=== PATIENT | male | born 1965 | race African-American/Black ===

== ENCOUNTER 2016-11-27 11:22 | Emergency (ER) | payer OTHER ==
[2016-11-27] MEDS ORDERED: HYDROcodone/APAP 5-325MG 1 EACH TAB PO STA (11:40)
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
--- NOTE | 2016-11-27 12:37 | XR ---
EXAMINATION TYPE: XR Hip RT and AP Pelvis DATE OF EXAM: 11/27/2016 12:14 PM COMPARISON: NONE HISTORY: Hip pain TECHNIQUE: A single AP view of the pelvis is obtained. Two views of the right hip are obtained. FINDINGS: The pelvic ring is intact. Proximal femurs and hip joints are intact. Sacroiliac joints ar e normal. IMPRESSION: Normal pelvis and right hip exam.
[2016-11-27 13:03] VITALS: BP 133/76; PULSE 81; RESP 18; TEMP 97.5
== END 2016-11-27 13:00 | disposition home or self-care (01) ==
LOC: EC 11:22
DX: S39.011A Strain of muscle, fascia and tendon of abdomen, initial encounter (principal); Z88.0 Allergy status to penicillin; F17.200 Nicotine dependence, unspecified, uncomplicated; X50.9XXA Other and unspecified overexertion or strenuous movements or postures, initial encounter
CPT/HCPCS: 73502; 99283

== ENCOUNTER 2017-04-27 09:03 | Emergency (ER) | payer OTHER ==
[2017-04-27 09:13] VITALS: BP 164/97; PULSE 69; RESP 15; TEMP 96.9
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
--- NOTE | 2017-04-27 10:23 | XR ---
EXAMINATION TYPE: XR shoulder complete RT DATE OF EXAM: 04/27/2017 CLINICAL HISTORY: pain TECHNIQUE: Three views of the right shoulder are obtained. COMPARISON: None FINDINGS: There is no acute fracture/dislocation evident. The acromioclavicular and glenohumeral luis felipe int spaces appear within normal limits. The visualized ribs are intact and unremarkable. IMPRESSION: 1. There is no acute fracture or dislocation. ICD 10 NO FRACTURE, INITIAL EVALUATION
--- NOTE | 2017-04-27 10:24 | XR ---
EXAMINATION TYPE: XR ribs LT w pa chest xray DATE OF EXAM: 04/27/2017 CLINICAL HISTORY: Pain Four views of the ribs fail demonstrate evidence for displaced rib fracture or secondary sign of rib fracture. Visualized lungs are clear. No evidence for pneumothorax. Scoliosis of the thoracic spine . IMPRESSION: No displaced rib fractures seen. ICD 10 NO FRACTURE, INITIAL EVALUATION
== END 2017-04-27 11:10 | disposition home or self-care (01) ==
LOC: EC 09:03
DX: S40.011A Contusion of right shoulder, initial encounter (principal); S20.212A Contusion of left front wall of thorax, initial encounter; F17.200 Nicotine dependence, unspecified, uncomplicated; Z88.0 Allergy status to penicillin; Y04.0XXA Assault by unarmed brawl or fight, initial encounter
CPT/HCPCS: 99283

== ENCOUNTER 2018-10-19 03:06 | Emergency (ER) | payer OTHER ==
[2018-10-19 03:20] VITALS: BP 163/101; PULSE 94; RESP 16; TEMP 98
[2018-10-19] MEDS ORDERED: predniSONE 50 MG TAB PO STA (03:36)
--- NOTE | 2018-10-19 03:41 | ED ---
Skin/Abscess/FB HPI - General Chief complaint: Skin/Abscess/Foreign Body Stated complaint: rash Time Seen by Provider: 10/19/18 03:21 Source: patient, RN notes reviewed, old records reviewed Mode of arrival: ambulatory Limitations: no limitations - History of Present Illness Initial comments: 53-year-old male presents emergency department today with chief complaint of rash 4 weeks. Patient states that he has had a pruritic rash over his arms buttocks groin and trunk for the past month. He states that he's had a rash similar to this many years ago when he cyanosis scabies. Patient reports his been using [id number] creams with no relief. He denies any known history of sick contacts. He denies any other complaints. He denies dysuria or hematuria or any concerns for STD that he is aware of this time. - Related Data Previous Rx's Medication Instructions Recorded Ibuprofen [Motrin] 600 mg PO Q6HR PRN #20 tab 04/27/17 Permethrin 5% Cream [Elimite] 1 applic TOPICAL ONCE #60 cream..g. 10/19/18 predniSONE 20 mg PO BID #10 tab 10/19/18 Allergies Allergy/AdvReac Type Severity Reaction Status Date / Time Penicillins Allergy Unknown Verified 10/19/18 03:20 Review of Systems ROS Statement: Those systems with pertinent positive or pertinent negative responses have been documented in the HPI. ROS Other: All systems not noted in ROS Statement are negative. Past Medical History Past Medical History: Hypertension History of Any Multi-Drug Resistant Organisms: None Reported Past Surgical History: Hernia Repair Past Psychological History: No Psychological Hx Reported Smoking Status: Current every day smoker Past Alcohol Use History: Occasional Past Drug Use History: None Reported General Exam - General Exam Comments Initial Comments: Is a 53-year-old -[place] male. No distress Limitations: no limitations General appearance: alert, in no apparent distress Head exam: Present: atraumatic, normocephalic, normal inspection Eye exam: Present: normal appearance, PERRL, EOMI. Absent: scleral icterus, conjunctival injection, periorbital swelling ENT exam: Present: normal exam, mucous membranes moist Neck exam: Present: normal inspection. Absent: tenderness, meningismus, lymphadenopathy Respiratory exam: Present: normal lung sounds bilaterally. Absent: respiratory distress, wheezes, rales, rhonchi, stridor Cardiovascular Exam: Present: regular rate, normal rhythm, normal heart sounds. Absent: systolic murmur, diastolic murmur, rubs, gallop, clicks GI/Abdominal exam: Present: soft, normal bowel sounds. Absent: distended, tenderness, guarding, rebound, rigid Extremities exam: Present: normal inspection, full ROM, normal capillary refill. Absent: tenderness, pedal edema, joint swelling, calf tenderness Back exam: Present: normal inspection Neurological exam: Present: alert, oriented X3, CN II-XII intact Psychiatric exam: Present: normal affect, normal mood Skin exam: Present: warm, dry, intact, normal color, rash (papular rash with exocoriations over arms, legs and trunk) Course Vital Signs 10/19/18 03:18 Temperature 98 F Pulse Rate 94 Respiratory 16 Rate Blood Pressure 163/101 O2 Sat by Pulse 99 Oximetry Medical Decision Making - Medical Decision Making 53-year-old male presents emergency Department today with complaints of a rash over her arms chest and abdomen. Patient's rash isn't present for 4 weeks. Patient has a raised papular rash with excoriations noted over the arms. There is no rash noted within the webspace that is so within the axilla and groin. Patient's rash appears to be similar to scabies not definitive. We will treat the Patient with permethrin cream as well as oral steroids to help with itching. Discussed strict return parameters and close follow-up with PCP. All questions answered. Disposition Clinical Impression: Dermatitis Disposition: HOME SELF-CARE Condition: Good Instructions (If sedation given, give patient instructions): Dermatitis (ED) Additional Instructions: Patient advised to follow-up with editorial writer. Patient should take the steroids as prescribed. Also recommended using the permethrin cream to treat for the possibility of scabies. Patient should return to the emergency department if any alarming signs or symptoms occur. Avoid scratching at the areas to ensure no secondary bacterial infections occur. Prescriptions: Permethrin 5% Cream [Elimite] 1 applic TOPICAL ONCE #60 cream..g. predniSONE 20 mg PO BID #10 tab Is patient prescribed a controlled substance at d/c from ED?: No Referrals: None,Stated [Primary Care Provider] - 1-2 days Jamar Quevedo MD [STAFF PHYSICIAN] - 1-2 days Time of Disposition: 03:38
== END 2018-10-19 03:54 | disposition home or self-care (01) ==
LOC: EC 03:06
DX: L30.9 Dermatitis, unspecified (principal); F17.200 Nicotine dependence, unspecified, uncomplicated; Z88.0 Allergy status to penicillin
CPT/HCPCS: 99283; J7512

== ENCOUNTER 2018-10-31 14:34 | Emergency (ER) | payer OTHER ==
--- NOTE | 2018-10-31 15:22 | ED ---
General Adult HPI - General Chief complaint: Skin/Abscess/Foreign Body Stated complaint: Rash on arm Time Seen by Provider: 10/31/18 14:50 Source: patient, RN notes reviewed Mode of arrival: ambulatory Limitations: no limitations - History of Present Illness Initial comments: 53-year-old male presents to the emergency department for a chief complaint of rash 6 weeks. Patient states this rash has been consistent and has not worsened significantly. Patient states it is very pruritic. Patient states this started on his arms and has since spread to his upper legs and torso. Patient was immunized as a child. Patient denies any systemic symptoms such as nausea vomiting, fevers, abdominal pain. Patient was seen here in the emergency department and given steroids and permethrin. Patient states the rash did not go away but the itching did resolve while he was taking the steroids. Patient was referred to dermatology but has not yet followed up. 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 He states he did this for before he came to the emergency department so he has not yet heard back. Patient has no other complaints at this time including shortness of breath, chest pain, abdominal pain, nausea or vomiting, headache, or visual changes. - Related Data Previous Rx's Medication Instructions Recorded Ibuprofen [Motrin] 600 mg PO Q6HR PRN #20 tab 04/27/17 Permethrin 5% Cream [Elimite] 1 applic TOPICAL ONCE #60 cream..g. 10/19/18 predniSONE 20 mg PO BID #10 tab 10/19/18 predniSONE 50 mg PO DAILY #5 tablet 10/31/18 Allergies Allergy/AdvReac Type Severity Reaction Status Date / Time Penicillins Allergy Unknown Verified 10/31/18 14:42 Review of Systems ROS Statement: Those systems with pertinent positive or pertinent negative responses have been documented in the HPI. ROS Other: All systems not noted in ROS Statement are negative. Past Medical History Past Medical History: Hypertension History of Any Multi-Drug Resistant Organisms: None Reported Past Surgical History: Hernia Repair Past Psychological History: No Psychological Hx Reported Smoking Status: Current every day smoker Past Alcohol Use History: Occasional Past Drug Use History: None Reported General Exam Limitations: no limitations General appearance: alert, in no apparent distress Head exam: Present: atraumatic, normocephalic, normal inspection Eye exam: Present: normal appearance, PERRL, EOMI. Absent: scleral icterus, conjunctival injection, periorbital swelling ENT exam: Present: normal exam, mucous membranes moist Neck exam: Present: normal inspection, full ROM. Absent: tenderness, meningismus, lymphadenopathy Respiratory exam: Present: normal lung sounds bilaterally. Absent: respiratory distress, wheezes, rales, rhonchi, stridor Cardiovascular Exam: Present: regular rate, normal rhythm, normal heart sounds. Absent: systolic murmur, diastolic murmur, rubs, gallop, clicks Neurological exam: Present: alert, oriented X3, CN II-XII intact Psychiatric exam: Present: normal affect, normal mood Skin exam: Present: rash (Patient has a papular raised rash noted to the upper extremities as well as upper legs abdomen. No significant lesions of the back. Patient does have pattern of pityriasis rosea noted to the sides of his back.) Course Vital Signs 10/31/18 14:39 Temperature 97.7 F Pulse Rate 109 H Respiratory 16 Rate Blood Pressure 163/92 O2 Sat by Pulse 99 Oximetry Medical Decision Making - Medical Decision Making 53-year-old male presents for nonspecific rash 6 weeks. Patient did take steroids for this and it did help with the itching. He has not followed up. On exam rash is raised on the upper extremities as well as abdomen and upper legs. Negative Nikolsky sign. Permethrin did not eliminate the rash when it was taken. At this time discussed with patient that I will give him more steroids but he needs to follow up with dermatology. He does agree to do this. He will return here if he has any worsening symptoms. Disposition Clinical Impression: Rash Disposition: HOME SELF-CARE Condition: Good Instructions (If sedation given, give patient instructions): Acute Rash (ED) Additional Instructions: Please take steroid as directed. Please follow up with dermatology and primary care in 1-2 days. You may have to follow up with primary first for referral to dermatology. Return here to the emergency department if you have any worsening symptoms. Prescriptions: predniSONE 50 mg PO DAILY #5 tablet Is patient prescribed a controlled substance at d/c from ED?: No Referrals: Nieves Santos MD [REFERRING] - 1-2 days Camelia Quevedo MD [STAFF PHYSICIAN] - 1-2 days Nitish Ventura MD [STAFF PHYSICIAN] - 1-2 days Time of Disposition: 15:44
[2018-10-31 16:07] VITALS: BP 157/100; PULSE 89; RESP 18; TEMP 97.5
== END 2018-10-31 16:07 | disposition home or self-care (01) ==
LOC: EC 14:34
DX: R21 Rash and other nonspecific skin eruption (principal); L42 Pityriasis rosea; F17.200 Nicotine dependence, unspecified, uncomplicated; Z88.0 Allergy status to penicillin
CPT/HCPCS: 99282

== ENCOUNTER → 2018-11-14 | Outpatient (CLI) | payer OTHER ==
[2018-11-15 01:10] LABS: Hepatitis B Surface AB- Quant 3.5 mIU/mL; Hepatitis C IgG Antibody Non-Reactive (Non-Reactive)
== END | disposition home or self-care (01) ==
LOC: LABWHC1 17:19
PROVIDERS: ATTEND Physician Assistant Medical
DX: D48.5 Neoplasm of uncertain behavior of skin (principal)
CPT/HCPCS: 36415; 82465; 82565; 84450; 84460; 84478; 84520; 86706; 86803; 87340

== ENCOUNTER 2019-07-16 08:45 | Emergency (ER) | payer OTHER ==
[2019-07-16 08:50] VITALS: BP 155/98; PULSE 71; RESP 18; TEMP 97.5
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
--- NOTE | 2019-07-16 09:27 | XR ---
EXAMINATION TYPE: XR shoulder complete RT DATE OF EXAM: 07/16/2019 COMPARISON: NONE HISTORY: Pain TECHNIQUE: Three views are submitted. FINDINGS: The osseous structures are intact. There is no acute fracture or dislocation. Mild AC joint arthropa thy. IMPRESSION: 1. Mild AC joint arthropathy
== END 2019-07-16 09:55 | disposition home or self-care (01) ==
LOC: EC 08:45
DX: S46.911A Strain of unspecified muscle, fascia and tendon at shoulder and upper arm level, right arm, initial encounter (principal); F17.200 Nicotine dependence, unspecified, uncomplicated; Z88.0 Allergy status to penicillin; V87.8XXA Person injured in other specified noncollision transport accidents involving motor vehicle (traffic), initial encounter
CPT/HCPCS: 99283

== ENCOUNTER 2019-09-03 20:23 | Emergency (ER) | payer OTHER ==
[2019-09-03 20:31] VITALS: BP 130/91; PULSE 91; RESP 18; TEMP 97.3
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
--- NOTE | 2019-09-03 20:54 | XR ---
EXAMINATION TYPE: XR shoulder complete LT DATE OF EXAM: 09/03/2019 COMPARISON: NONE HISTORY: Pain TECHNIQUE: 3 views FINDINGS: I see no fracture nor dislocation. Glenohumeral joint is intact. There are no pathologic ca lcifications. IMPRESSION: Negative left shoulder exam.
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
== END 2019-09-03 21:07 | disposition home or self-care (01) ==
LOC: EC 20:23
DX: S09.90XA Unspecified injury of head, initial encounter (principal); M25.512 Pain in left shoulder; M41.9 Scoliosis, unspecified; F17.200 Nicotine dependence, unspecified, uncomplicated; Z88.0 Allergy status to penicillin; Y04.0XXA Assault by unarmed brawl or fight, initial encounter; Y93.89 Activity, other specified
CPT/HCPCS: 70450; 99284

== ENCOUNTER 2022-04-30 20:57 | Inpatient (IN) | payer OTHER ==
[2022-04-30] MEDS ORDERED: DIPH,PERTUS(ACELL)TETVAC-LF 0.5 ML VIAL IM ONE (21:13)
[2022-04-30] MEDS ORDERED: LORazepam 2 MG/ML INJ IV STA ×2 (21:30→21:50)
[2022-04-30] MEDS ORDERED: HALOPERIDOL LACTATE 5 MG/ML 1 ML VIAL IVP STA ×2 (21:30→22:07)
[2022-04-30] MEDS ORDERED: SODIUM CHLORIDE 0.9% 1,000 ML IV STA (21:36)
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
[2022-04-30 22:09] LABS: Basophils % (A) 0 %; Eosinophils # (A) 0.1 k/uL (0-0.7); Eosinophils % (A) 1 %; HCT 40.4 % (39.0-53.0); HGB 13.5 gm/dL (13.0-17.5); Lymphocytes # (A) 2.8 k/uL (1.0-4.8); Lymphocytes % (A) 33 %; MCH 31.8 pg (25.0-35.0); MCHC 33.4 g/dL (31.0-37.0); MCV 95.1 fL (80.0-100.0); Mean Platelet Volume 8.7; Monocytes # (A) 0.5 k/uL (0-1.0); Monocytes % (A) 6 %; Neutrophils # (A) 4.9 k/uL (1.3-7.7); Neutrophils % (A) 57 %; Platelet Count 178 k/uL (150-450); RBC 4.25 m/uL (4.30-5.90); RDW 13.6 % (11.5-15.5); WBC 8.6 k/uL (3.8-10.6)
[2022-04-30 22:13] LABS: INR 0.9 (<1.2); Prothrombin Time 9.7 sec (9.0-12.0)
[2022-04-30 22:27] LABS: ALT 28 U/L (4-49); AST 59 U/L (17-59); African American GFR (CKD) >90 (>60 ml/min/1.73 sqM); Albumin 4.1 g/dL (3.5-5.0); Alkaline Phosphatase 64 U/L (38-126); Anion Gap 13 mmol/L; Blood Urea Nitrogen 11 mg/dL (9-20); Calcium 9.2 mg/dL (8.4-10.2); Carbon Dioxide 28 mmol/L (22-30); Chloride 98 mmol/L (98-107); Glucose 100 mg/dL (74-99); Non-African American GFR(CKD) >90 (>60 ml/min/1.73 sqM); Potassium 2.8 mmol/L (3.5-5.1); Sodium 139 mmol/L (137-145); Total Bilirubin 0.6 mg/dL (0.2-1.3); Total Protein 6.9 g/dL (6.3-8.2)
[2022-04-30 22:33] LABS: Alcohol 88 mg/dL
[2022-04-30] MEDS ORDERED: POTASSIUM CHLORIDE ER 20 MEQ TAB.ER PO STA (22:51)
--- NOTE | 2022-04-30 22:57 | CT ---
EXAMINATION TYPE: CT brain wo con DATE OF EXAM: 04/30/2022 COMPARISON: 09/03/2019 HISTORY: ams CT DLP: 1231.4 mGycm Automated exposure control for dose reduction was used. Images of the brain obtained without contrast. Ventricles have normal size. There is no mass effect or midline shift. No sign of intracranial hemorr celia. The calvarium is intact. There is left occipital scalp hematoma measuring up to 1 cm in thickne ss. No fracture seen. IMPRESSION: No acute intracranial abnormality. Left side occipital scalp hematoma.
[2022-04-30] MEDS ORDERED: NALOXONE 0.4 MG/ML 1 ML VIAL IV PRN (23:14)
[2022-04-30] MEDS ORDERED: LORazepam 2 MG/ML INJ IV PRN ×2 (23:33)
[2022-04-30] MEDS ORDERED: THIAMINE 100 MG/ML 2 ML VIAL IM STA (23:33)
[2022-04-30] MEDS ORDERED: POTASSIUM CHLORIDE 20 MEQ in WATER FOR INJECTION 1 100ML.BAG IVPB STA (23:34)
--- NOTE | 2022-04-30 23:37 | XR ---
EXAMINATION TYPE: XR pelvis AP view DATE OF EXAM: 04/30/2022 COMPARISON: 11/27/2016 HISTORY: Pain TECHNIQUE: Single view FINDINGS: The pelvic ring is intact. There are bony densities lateral to the right acetabulum consist ent with large acetabular chip fracture. No dislocation. The proximal femurs are intact. Sacroiliac j oints are intact. IMPRESSION: Large lateral right acetabular chip fracture. No dislocation.
--- NOTE | 2022-04-30 23:38 | XR ---
EXAMINATION TYPE: XR chest 1V portable DATE OF EXAM: 04/30/2022 COMPARISON: 04/27/2017 HISTORY: Pain TECHNIQUE: Single view FINDINGS: Heart is normal. Lungs are clear of consolidation. There are no hilar masses. There is thor acic dextroscoliosis. There are chest leads. No pneumothorax. IMPRESSION: No active cardiopulmonary disease. Normal heart. No change.
[2022-05-01] MEDS ORDERED: MORPHINE SULFATE 4 MG/ML SYRINGE IVP PRN (00:35)
[2022-05-01 03:32] LABS: Amphetamine Screen,Urine Not Detected (NotDetected); Barbiturate Screen,Urine Not Detected (NotDetected); Benzodiazepines Screen,Urine Detected (NotDetected); Cocaine Screen,Urine Not Detected (NotDetected); Methadone Screen, Urine Not Detected (NotDetected); Opiate Screen,Urine Not Detected (NotDetected); Oxycodone Screen, Urine Not Detected (NotDetected); Phencyclidine Screen,Urine Not Detected (NotDetected); Tricyclic Antidepressant,Urine Not Detected (NotDetected); Urn Cannabinoid Scrn Not Detected (NotDetected)
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
[2022-05-01] MEDS: THIAMINE 100 MG TAB PO SCH ×3 (06:50→15:43)
[2022-05-01] MEDS: SODIUM CHLORIDE 0.9% 1,000 ML IV SCH ×3 (07:42→21:14)
[2022-05-01] MEDS ORDERED: FLUMAZENIL 0.1 MG/ML 5 ML VIAL IVP PRN (08:24)
[2022-05-01] MEDS ORDERED: FLUMAZENIL 0.1 MG/ML 5 ML VIAL IVP STA (08:28)
[2022-05-01 08:43] LABS: Basophils % (A) 0 %; Eosinophils % (A) 0 %; HCT 39.3 % (39.0-53.0); HGB 13.1 gm/dL (13.0-17.5); Lymphocytes # (A) 1.5 k/uL (1.0-4.8); Lymphocytes % (A) 17 %; MCHC 33.3 g/dL (31.0-37.0); Mean Platelet Volume 8.6; Monocytes # (A) 0.6 k/uL (0-1.0); Monocytes % (A) 7 %; Neutrophils # (A) 6.7 k/uL (1.3-7.7); Neutrophils % (A) 75 %; Platelet Count 176 k/uL (150-450); RDW 13.4 % (11.5-15.5); WBC 8.9 k/uL (3.8-10.6)
[2022-05-01 09:29] LABS: African American GFR (CKD) >90 (>60 ml/min/1.73 sqM); Anion Gap 9 mmol/L; Blood Urea Nitrogen 8 mg/dL (9-20); Calcium 8.3 mg/dL (8.4-10.2); Carbon Dioxide 30 mmol/L (22-30); Chloride 100 mmol/L (98-107); Glucose 71 mg/dL (74-99); Non-African American GFR(CKD) >90 (>60 ml/min/1.73 sqM); Sodium 139 mmol/L (137-145)
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
[2022-05-01 15:57] LABS: African American GFR (CKD) >90 (>60 ml/min/1.73 sqM); Anion Gap 11 mmol/L; Blood Urea Nitrogen 8 mg/dL (9-20); Calcium 8.4 mg/dL (8.4-10.2); Carbon Dioxide 23 mmol/L (22-30); Chloride 103 mmol/L (98-107); Glucose 63 mg/dL (74-99); Non-African American GFR(CKD) >90 (>60 ml/min/1.73 sqM); Potassium 3.5 mmol/L (3.5-5.1); Sodium 137 mmol/L (137-145)
[2022-05-01] MEDS: HEPARIN SODIUM,PORCINE/PF 5,000 UNIT/0.5 ML SYRINGE SQ SCH ×2 (16:15→22:05)
--- NOTE | 2022-05-01 16:59 | P.PN ---
Progress Note - Text Progress Note Date: 05/01/[address] reviewed with Dr. Baxter. No new fracture seen. No pain on exam. The patient may weightbear as tolerated. We will sign off at this time.
[2022-05-01] MEDS: LORazepam 2 MG/ML INJ IV PRN (19:49)
[2022-05-01] MEDS: FAMOTIDINE 20 MG/2 ML VIAL IV SCH (21:14)
[2022-05-01] MEDS ORDERED: NICOTINE 14MG/24HR PATCH TRANSDERM STA (21:30)
[2022-05-02] MEDS: LORazepam 2 MG/ML INJ IV PRN ×4 (00:52→20:51)
[2022-05-02] MEDS: THIAMINE 100 MG TAB PO SCH ×2 (06:38→15:15)
[2022-05-02] MEDS: SODIUM CHLORIDE 0.9% 1,000 ML IV SCH ×2 (06:38→10:50)
[2022-05-02] MEDS: FAMOTIDINE 20 MG/2 ML VIAL IV SCH ×2 (08:34→20:52)
[2022-05-02] MEDS: HEPARIN SODIUM,PORCINE/PF 5,000 UNIT/0.5 ML SYRINGE SQ SCH ×3 (08:34→20:52)
--- NOTE | 2022-05-02 10:24 | P.PN ---
Subjective Progress Note Date: 05/02/22 Patient is still altered, restless in bed. Gen: awake, not oriented to person, time, is oriented to place HEENT: normocephalic, atraumatic, good hearing acuity, moist mucous membranes Resp: good air exchange, breathing comfortably with no accessory muscle use CVS: good distal perfusion x 4, GI: soft, NTTP, ND : no SPT, no CVAT, solorzano catheter not present MSK: no pitting edema, no clubbing Neuro: non-focal, moving all extremities Psych: Minimally cooperative, restless, depressed affect Assessment/plan: Altered mental status, suspected postconcussive syndrome versus alcohol withdrawal -Neurochecks -Fall precautions -Neurology consult -CIWA protocol -Thiamine, IV fluids Hip fracture -Orthopedic surgery following Hypokalemia -Replace and monitor We appreciate this opportunity to be involved in this patient's care. We will follow the patient with you. For any further questions, please not hesitate to contact the sound inpatient team. Objective - Vital Signs Vital signs: Vital Signs Temp 98.4 F 05/02/22 07:57 Pulse 91 05/02/22 07:57 Resp 18 05/02/22 07:57 BP 154/91 05/02/22 07:57 Pulse Ox 95 05/02/22 08:01 FiO2 Intake & Output 05/01/22 05/02/22 05/02/22 18:59 06:59 18:59 Weight 56 kg Other: Voiding Method Diaper Diaper Incontinent # Voids 1 1 - Labs CBC & Chem 7: 05/01/22 07:40 05/01/22 14:57 Labs: Abnormal Lab Results - Last 24 Hours (Table) 05/01/22 Range/Units 14:57 BUN 8 L (9-20) mg/dL Creatinine 0.60 L (0.66-1.25) mg/dL Glucose 63 L (74-99) mg/dL
[2022-05-02] MEDS ORDERED: ONDANSETRON 4 MG/2 ML VIAL IVP PRN (10:53)
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
[2022-05-03] MEDS: SODIUM CHLORIDE 0.9% 1,000 ML IV SCH (02:48)
[2022-05-03] MEDS: LORazepam 2 MG/ML INJ IV PRN ×2 (03:01→22:56)
[2022-05-03] MEDS: THIAMINE 100 MG TAB PO SCH ×2 (05:59→16:03)
[2022-05-03 06:17] LABS: Glucose,Whole Blood 98 mg/dL (70-110)
[2022-05-03 07:51] LABS: Basophils % (A) 0 %; Eosinophils # (A) 0.1 k/uL (0-0.7); Eosinophils % (A) 1 %; HCT 38.1 % (39.0-53.0); HGB 12.6 gm/dL (13.0-17.5); Lymphocytes # (A) 1.5 k/uL (1.0-4.8); Lymphocytes % (A) 18 %; MCH 31.4 pg (25.0-35.0); MCHC 33.1 g/dL (31.0-37.0); MCV 94.9 fL (80.0-100.0); Mean Platelet Volume 8.5; Monocytes # (A) 0.7 k/uL (0-1.0); Monocytes % (A) 9 %; Neutrophils # (A) 5.8 k/uL (1.3-7.7); Neutrophils % (A) 70 %; Platelet Count 189 k/uL (150-450); RBC 4.02 m/uL (4.30-5.90); RDW 13.3 % (11.5-15.5); WBC 8.3 k/uL (3.8-10.6)
[2022-05-03 08:10] LABS: African American GFR (CKD) >90 (>60 ml/min/1.73 sqM); Anion Gap 10 mmol/L; Blood Urea Nitrogen 7 mg/dL (9-20); Calcium 8.6 mg/dL (8.4-10.2); Carbon Dioxide 25 mmol/L (22-30); Chloride 101 mmol/L (98-107); Glucose 76 mg/dL (74-99); Non-African American GFR(CKD) >90 (>60 ml/min/1.73 sqM); Potassium 3.3 mmol/L (3.5-5.1); Sodium 136 mmol/L (137-145)
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
[2022-05-03 11:01] VITALS: BMI 19.3
[2022-05-03] MEDS: FAMOTIDINE 20 MG/2 ML VIAL IV SCH ×2 (11:20→20:33)
[2022-05-03] MEDS: HEPARIN SODIUM,PORCINE/PF 5,000 UNIT/0.5 ML SYRINGE SQ SCH ×3 (11:21→23:00)
[2022-05-03] MEDS ORDERED: POTASSIUM CHLORIDE ER 20 MEQ TAB.ER PO STA (11:51)
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
--- NOTE | 2022-05-03 15:15 | P.PN ---
Subjective Progress Note Date: 05/03/22 Patient seen and examined. Attempting to climb out of bed. Appears restless. Sitter at bedside. General: non toxic, no distress, appears at stated age Derm: warm, dry Head: atraumatic, normocephalic, symmetric Eyes: EOMI, no lid lag, anicteric sclera Mouth: no lip lesion, mucus membranes moist Cardiovascular: S1S2 reg, no murmur Lungs: CTA bilateral, no rhonchi, no rales , no accessory muscle use Ext: no gross muscle atrophy, no edema, no contractures Neuro: no focal neuro deficits Psych: Intelligible speach, restless Assessment/plan: Altered mental status, suspected postconcussive syndrome versus alcohol withdrawal -Neurochecks -Fall precautions -Neurology consult -Repeat CT head shows no acute intracranial process, left posterior scalp hematoma with no evidence of fracture -[facility] protocol -Thiamine, IV fluids Hip fracture -Orthopedic surgery following -CT hip shows no evidence of fracture Hypokalemia -Replace and monitor We appreciate this opportunity to be involved in this patient's care. We will follow the patient with you. For any further questions, please not hesitate to contact the [facility] inpatient team. Objective - Vital Signs Vital signs: Vital Signs Temp 99.1 F 05/03/22 11:20 Pulse 61 05/03/22 11:20 Resp 16 05/03/22 13:45 BP 173/108 05/03/22 11:20 Pulse Ox 99 05/03/22 11:20 FiO2 Intake & Output 05/02/22 05/03/22 05/03/22 18:59 06:59 18:59 Intake Total 240 Balance 240 Weight 56 kg Intake: Oral 240 Other: Voiding Method Diaper Diaper Incontinent Incontinent # Voids 2 - Labs CBC & Chem 7: 05/03/22 07:24 05/03/22 07:24 Labs: Abnormal Lab Results - Last 24 Hours (Table) 05/03/22 05/03/22 Range/Units 07:24 07:24 RBC 4.02 L (4.30-5.90) m/uL Hgb 12.6 L (13.0-17.5) gm/dL Hct 38.1 L (39.0-53.0) % Sodium 136 L (137-145) mmol/L Potassium 3.3 L (3.5-5.1) mmol/L BUN 7 L (9-20) mg/dL
[2022-05-03] MEDS: hydrALAZINE HCL 25 MG TAB PO PRN (20:34)
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
[2022-05-04] MEDS: THIAMINE 100 MG TAB PO SCH ×2 (06:44→18:31)
[2022-05-04 07:51] LABS: African American GFR (CKD) >90 (>60 ml/min/1.73 sqM); Anion Gap 9 mmol/L; Blood Urea Nitrogen 8 mg/dL (9-20); Carbon Dioxide 26 mmol/L (22-30); Chloride 103 mmol/L (98-107); Glucose 80 mg/dL (74-99); Magnesium 1.6 mg/dL (1.6-2.3); Non-African American GFR(CKD) >90 (>60 ml/min/1.73 sqM); Potassium 3.3 mmol/L (3.5-5.1); Sodium 138 mmol/L (137-145)
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
[2022-05-04] MEDS ORDERED: POTASSIUM CHLORIDE ER 20 MEQ TAB.ER PO STA (09:14)
[2022-05-04] MEDS: hydrALAZINE HCL 25 MG TAB PO PRN (09:45)
[2022-05-04] MEDS: FAMOTIDINE 20 MG/2 ML VIAL IV SCH ×2 (09:45→20:20)
[2022-05-04] MEDS: HEPARIN SODIUM,PORCINE/PF 5,000 UNIT/0.5 ML SYRINGE SQ SCH ×3 (09:46→23:10)
--- NOTE | 2022-05-04 11:54 | MR ---
EXAMINATION TYPE: MR brain wo con DATE OF EXAM: 05/04/2022 11:25 AM COMPARISON: NONE HISTORY: Concussion, weakness, abnormal mental status FINDINGS: The ventricles, basal cisterns and sulci overlying the cerebral convexities are mildly enlarged. There is evidence of mild periventricular white matter ischemic demyelination. Remote deep white matter insults are also noted. There are 2 focal areas of decreased signal within the right frontal lobe on the T2-weighted data se ts measuring 5 mm axial image 20 and 2 mm axial image 17 with small amount of surrounding edema. Find ings are felt to reflect small areas of contusive hemorrhage. There may be a third which is 1 mm in s ize. There is no evidence for midline shift or mass effect. No extra-axial collection is not evident. The paranasal sinuses and mastoid air cells are well-aerated. IMPRESSION: There are 2 focal areas of decreased signal within the right frontal lobe on the T2-weighted data se ts measuring 5 mm axial image 20 and 2 mm axial image 17 with small amount of surrounding edema. Find ings are felt to reflect small areas of contusive hemorrhage.
[2022-05-04] MEDS ORDERED: LORazepam 1 MG/0.5 ML VIAL IV PRN ×2 (12:25→12:26)
--- NOTE | 2022-05-04 12:54 | P.PN ---
Subjective Progress Note Date: 05/04/22 Principal diagnosis: Concussion Patient remains confused. He is slowly becoming more alert however. Denies pain. MRI of the brain did reveal 2 small sub-centimeter foci of contusive hemorrhage. EEG is ordered and pending. Hemodynamically stable. Objective - Vital Signs Vital signs: Vital Signs Temp 97.2 F L 05/04/22 04:00 Pulse 82 05/04/22 04:00 Resp 16 05/04/22 02:00 BP 168/98 05/04/22 04:00 Pulse Ox 94 L 05/04/22 04:00 FiO2 Intake & Output 05/03/22 05/04/22 05/04/22 18:59 06:59 18:59 Intake Total 118 10 Balance 118 10 Weight 56 kg Intake: IV 10 Invasive Line 3 10 Oral 118 Other: Voiding Method Diaper Diaper Incontinent Incontinent # Voids 1 2 # Bowel Movements 1 - Exam Abdomen: Soft, nontender, nondistended Neuro: Awake, somewhat lethargic, aware of person but not place or date, acknowledges me as a physician - Labs CBC & Chem 7: 05/03/22 07:24 05/04/22 07:21 Labs: Abnormal Lab Results - Last 24 Hours (Table) 05/04/22 Range/Units 07:21 Potassium 3.3 L (3.5-5.1) mmol/L BUN 8 L (9-20) mg/dL Assessment and Plan (1) Cerebral hemorrhage Narrative/Plan: Patient slowly improving. MRI results noted in certainly go along with the patient's presentation. Discussed case with neurology. We both agreed that transfer for neurosurgical evaluation would not appear to benefit the patient at this time. Continue neuro checks. Await EEG. We'll follow. Current Visit: Yes Status: Acute Code(s): I61.9 - NONTRAUMATIC INTRACEREBRAL HEMORRHAGE, UNSPECIFIED SNOMED Code(s): 852008486
[2022-05-04] MEDS: levETIRAcetam 500 MG TAB PO SCH ×2 (13:30→20:21)
[2022-05-04] MEDS ORDERED: hydrALAZINE HCL 20 MG/ML 1 ML VIAL IVP PRN (13:39)
--- NOTE | 2022-05-04 13:41 | P.PN ---
Subjective Progress Note Date: 05/04/22 Patient seen and examined. Family at bedside. Continues to be confused. Apparently found on the floor this morning. General: non toxic, no distress, appears at stated age Derm: warm, dry Head: atraumatic, normocephalic, symmetric Eyes: EOMI, no lid lag, anicteric sclera Mouth: no lip lesion, mucus membranes moist Cardiovascular: S1S2 reg, no murmur Lungs: CTA bilateral, no rhonchi, no rales , no accessory muscle use Ext: no gross muscle atrophy, no edema, no contractures Neuro: no focal neuro deficits Psych: Intelligible speach, restless Assessment/plan: Altered mental status, suspected postconcussive syndrome versus alcohol withdrawal -Neurochecks -Fall precautions -Neurology consult -Repeat CT head shows no acute intracranial process, left posterior scalp hematoma with no evidence of fracture -MRI brain shows contested hemorrhage with surrounding edema -EEG and MRI C-spine pending -Speech for swallow evaluation -One to one sitter -TSH, B12 and Folic acid levels ordered -[facility] protocol -Thiamine, IV fluids Hypertension -Hydralazine IV for SBP > 180 or DBP > 100 Hypokalemia -Replace and monitor We appreciate this opportunity to be involved in this patient's care. We will follow the patient with you. For any further questions, please not hesitate to contact the sound inpatient team. Objective - Vital Signs Vital signs: Vital Signs Temp 97.2 F L 05/04/22 04:00 Pulse 82 05/04/22 04:00 Resp 16 05/04/22 02:00 BP 168/98 05/04/22 04:00 Pulse Ox 94 L 05/04/22 04:00 FiO2 Intake & Output 05/03/22 05/04/22 05/04/22 18:59 06:59 18:59 Intake Total 118 10 Balance 118 10 Weight 56 kg Intake: IV 10 Invasive Line 3 10 Oral 118 Other: Voiding Method Diaper Diaper Incontinent Incontinent # Voids 1 2 # Bowel Movements 1 - Labs CBC & Chem 7: 05/03/22 07:24 05/04/22 07:21 Labs: Abnormal Lab Results - Last 24 Hours (Table) 05/04/22 Range/Units 07:21 Potassium 3.3 L (3.5-5.1) mmol/L BUN 8 L (9-20) mg/dL
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
[2022-05-05] MEDS: THIAMINE 100 MG TAB PO SCH ×2 (06:30→19:19)
[2022-05-05] MEDS: FAMOTIDINE 20 MG/2 ML VIAL IV SCH ×2 (09:52→22:07)
[2022-05-05] MEDS: HEPARIN SODIUM,PORCINE/PF 5,000 UNIT/0.5 ML SYRINGE SQ SCH ×2 (09:52→19:22)
[2022-05-05] MEDS: levETIRAcetam 500 MG TAB PO SCH ×2 (09:52→22:07)
--- NOTE | 2022-05-05 09:58 | P.PN ---
Subjective Progress Note Date: 05/05/22 Patient seen and examined. Family at bedside. He is more verbal and comprehensive today. General: non toxic, no distress, appears at stated age Derm: warm, dry Head: atraumatic, normocephalic, symmetric Eyes: EOMI, no lid lag, anicteric sclera Mouth: no lip lesion, mucus membranes moist Cardiovascular: S1S2 reg, no murmur Lungs: CTA bilateral, no rhonchi, no rales , no accessory muscle use Ext: no gross muscle atrophy, no edema, no contractures Neuro: no focal neuro deficits Psych: Intelligible speach Assessment/plan: Altered mental status, suspected postconcussive syndrome versus alcohol withd chuyita -Neurochecks -Fall precautions -Neurology consult -Repeat CT head shows no acute intracranial process, left posterior scalp hematoma with no evidence of fracture -MRI brain shows contested hemorrhage with surrounding edema -EEG shows background slowing suggesting encephalopathy -Speech for swallow evaluation -One to one sitter -TSH, B12 and Folic acid levels within normal limits -[facility] protocol -Thiamine, IV fluids Hypertension -Hydralazine IV for SBP > 180 or DBP > 100 Hypokalemia -Replace and monitor We appreciate this opportunity to be involved in this patient's care. We will follow the patient with you. For any further questions, please not hesitate to contact the sound inpatient team. Objective - Vital Signs Vital signs: Vital Signs Temp 97.7 F 05/04/22 23:06 Pulse 102 H 05/05/22 03:40 Resp 18 05/05/22 03:40 BP 141/86 05/05/22 03:40 Pulse Ox 95 05/05/22 03:40 FiO2 Intake & Output 05/04/22 05/05/22 05/05/22 18:59 06:59 18:59 Intake Total 20 20 Balance 20 20 Intake: IV 20 20 Invasive Line 3 20 20 Other: Voiding Method Diaper Diaper Incontinent Incontinent # Voids 1 2 # Bowel Movements 1 - Labs CBC & Chem 7: 05/03/22 07:24 05/04/22 07:21
[2022-05-05 10:15] LABS: African American GFR (CKD) >90 (>60 ml/min/1.73 sqM); Anion Gap 9 mmol/L; Blood Urea Nitrogen 10 mg/dL (9-20); Calcium 9.4 mg/dL (8.4-10.2); Carbon Dioxide 26 mmol/L (22-30); Chloride 103 mmol/L (98-107); Glucose 136 mg/dL (74-99); Non-African American GFR(CKD) >90 (>60 ml/min/1.73 sqM); Potassium 3.4 mmol/L (3.5-5.1); Sodium 138 mmol/L (137-145)
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
--- NOTE | 2022-05-05 14:58 | P.PN ---
Subjective Progress Note Date: 05/05/22 Principal diagnosis: Concussion Patient resting in bed. Says he is doing fine. Remains confused. Family is not present at the bedside currently. CAT scan brain was ordered by neurology as a follow-up after MRI findings. CAT scan does confirm intracranial bleed at the site identified on MRI. This is likely a contrecoup injury from the left scalp hematoma site. Patient had an EEG performed as well. No seizure activity was seen. Prophylactically maintained on Keppra. Objective - Vital Signs Vital signs: Vital Signs Temp 98.0 F 05/05/22 08:00 Pulse 88 05/05/22 11:56 Resp 18 05/05/22 11:56 BP 152/94 05/05/22 11:56 Pulse Ox 99 05/05/22 11:56 FiO2 Intake & Output 05/04/22 05/05/22 05/05/22 18:59 06:59 18:59 Intake Total 20 20 10 Balance 20 20 10 Intake: IV 20 20 10 Invasive Line 3 20 20 10 Other: Voiding Method Diaper Diaper Diaper Incontinent Incontinent Incontinent # Voids 1 2 # Bowel Movements 1 - Exam Physical exam: General: Well-developed, well-nourished HEENT: Hematoma left posterior scalp mostly absent now Abdomen: Nontender, nondistended Extremities: No edema Neuro: Alert - Labs CBC & Chem 7: 05/03/22 07:24 05/05/22 09:20 Labs: Abnormal Lab Results - Last 24 Hours (Table) 05/05/22 Range/Units 09:20 Potassium 3.4 L (3.5-5.1) mmol/L Glucose 136 H (74-99) mg/dL Assessment and Plan (1) Cerebral hemorrhage Narrative/Plan: Patient doing about the same. CAT scan results noted. Neurology and I discussed yesterday whether transfer would benefit the patient and felt that it this time that was not the case. Continue neuro checks and supportive care. Final disposition per neurology. Current Visit: Yes Status: Acute Code(s): I61.9 - NONTRAUMATIC INTRACEREBRAL HEMORRHAGE, UNSPECIFIED SNOMED Code(s): 038160652
[2022-05-05] MEDS: POTASSIUM CHLORIDE ER 20 MEQ TAB.ER PO SCH ×2 (22:07→22:58)
[2022-05-05] MEDS: NICOTINE 14MG/24HR PATCH TRANSDERM SCH (22:10)
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
[2022-05-06] MEDS: THIAMINE 100 MG TAB PO SCH ×2 (06:37→17:30)
[2022-05-06] MEDS: NICOTINE 14MG/24HR PATCH TRANSDERM SCH (08:33)
[2022-05-06] MEDS: levETIRAcetam 500 MG TAB PO SCH ×2 (08:33→19:58)
[2022-05-06] MEDS: FAMOTIDINE 20 MG/2 ML VIAL IV SCH ×2 (08:33→19:58)
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
--- NOTE | 2022-05-06 11:20 | P.PN ---
Subjective Progress Note Date: 05/06/22 Patient seen and examined. He is more verbal today, answering questions appropriately. Sitter at bedside. General: non toxic, no distress, appears at stated age Derm: warm, dry Head: atraumatic, normocephalic, symmetric Eyes: EOMI, no lid lag, anicteric sclera Mouth: no lip lesion, mucus membranes moist Cardiovascular: S1S2 reg, no murmur Lungs: CTA bilateral, no rhonchi, no rales , no accessory muscle use Ext: no gross muscle atrophy, no edema, no contractures Neuro: no focal neuro deficits Psych: Intelligible speach Assessment/plan: Altered mental status, suspected postconcussive syndrome versus alcohol withdrawal -Neurochecks -Fall precautions -Neurology consult -05/01 CT head shows no acute intracranial process, left posterior scalp hematoma with no evidence of fracture -05/05 CT head shows 4 mm intraparenchymal acute hemorrhage within the right frontal lobe -MRI brain shows contested hemorrhage with surrounding edema -EEG shows background slowing suggesting encephalopathy -Speech for swallow evaluation -One to one sitter -TSH, B12 and Folic acid levels within normal limits -[facility] protocol -Thiamine, IV fluids Hypertension -Hydralazine IV for SBP > 180 or DBP > 100 Hypokalemia -Replace and monitor PMR evaluated the patient and recommends inpatient rehab with closed unit. Social work on board for placement. We appreciate this opportunity to be involved in this patient's care. We will follow the patient with you. For any further questions, please not hesitate to contact the sound inpatient team. Objective - Vital Signs Vital signs: Vital Signs Temp 97.9 F 05/06/22 08:27 Pulse 93 05/06/22 08:27 Resp 16 05/06/22 08:27 BP 142/89 05/06/22 08:27 Pulse Ox 97 05/06/22 08:27 FiO2 Intake & Output 05/05/22 05/06/22 05/06/22 18:59 06:59 18:59 Intake Total 200 240 Balance 200 240 Intake: IV 20 Invasive Line 3 20 Oral 180 240 Other: Voiding Method Diaper Diaper Incontinent Incontinent # Voids 2 - Labs CBC & Chem 7: 05/03/22 07:24 05/05/22 09:20
--- NOTE | 2022-05-06 14:03 | P.PN ---
Subjective Progress Note Date: 05/06/22 Principal diagnosis: Concussion Patient doing better today. Much more alert. Able to carry on a conversation. Patient still not oriented to place however. Objective - Vital Signs Vital signs: Vital Signs Temp 97.9 F 05/06/22 08:27 Pulse 77 05/06/22 11:24 Resp 18 05/06/22 11:24 BP 154/98 05/06/22 11:24 Pulse Ox 96 05/06/22 11:24 FiO2 Intake & Output 05/05/22 05/06/22 05/06/22 18:59 06:59 18:59 Intake Total 200 240 Balance 200 240 Weight 56 kg Intake: IV 20 Invasive Line 3 20 Oral 180 240 Other: Voiding Method Diaper Diaper Diaper Incontinent Incontinent Incontinent # Voids 2 - Exam Patient is more alert today. Abdomen remained soft nontender - Labs CBC & Chem 7: 05/03/22 07:24 05/05/22 09:20 Assessment and Plan (1) Cerebral hemorrhage Narrative/Plan: Patient doing well at this time. Continue neurologic evaluation and management. Possible discharge to rehab when cleared by neurology. Current Visit: Yes Status: Acute Code(s): I61.9 - NONTRAUMATIC INTRACEREBRAL HEMORRHAGE, UNSPECIFIED SNOMED Code(s): 860490248
[2022-05-07] MEDS: THIAMINE 100 MG TAB PO SCH ×2 (06:53→17:42)
--- NOTE | 2022-05-07 09:06 | P.PN ---
Subjective Progress Note Date: 05/07/22 Patient seen and examined. Patient is pleasant today, able to carry on a conversation. Continues to be confused. Sitter at bedside. General: non toxic, no distress, appears at stated age Derm: warm, dry Head: atraumatic, normocephalic, symmetric Eyes: EOMI, no lid lag, anicteric sclera Mouth: no lip lesion, mucus membranes moist Cardiovascular: S1S2 reg, no murmur Lungs: CTA bilateral, no rhonchi, no rales , no accessory muscle use Ext: no gross muscle atrophy, no edema, no contractures Neuro: no focal neuro deficits Psych: Intelligible speach Assessment/plan: Altered mental status, suspected postconcussive syndrome versus alcohol withdrawal Closed head injury Intraparenchymal hemorrhage -Neurochecks -Fall precautions -Neurology consult -05/01 CT head shows no acute intracranial process, left posterior scalp hematoma with no evidence of fracture -05/05 CT head shows 4 mm intraparenchymal acute hemorrhage within the right frontal lobe -MRI brain shows contested hemorrhage with surrounding edema -EEG shows background slowing suggesting encephalopathy -Speech for swallow evaluation -One to one sitter -TSH, B12 and Folic acid levels within normal limits -[facility] protocol -Thiamine, IV fluids Hypertension -Hydralazine IV for SBP > 180 or DBP > 100 Hypokalemia -Replace and monitor PMR evaluated the patient and recommends inpatient rehab with closed unit. Social work on board for placement. We appreciate this opportunity to be involved in this patient's care. We will follow the patient with you. For any further questions, please not hesitate to contact the sound inpatient team. Objective - Vital Signs Vital signs: Vital Signs Temp 98.0 F 05/07/22 02:00 Pulse 82 05/07/22 02:00 Resp 18 05/07/22 02:00 BP 150/86 05/07/22 02:00 Pulse Ox 98 05/07/22 02:00 FiO2 Intake & Output 05/06/22 05/07/22 05/07/22 18:59 06:59 18:59 Intake Total 960 Output Total 150 Balance 960 -150 Weight 56 kg Intake: Oral 960 Output: Urine 150 Other: Voiding Method Diaper Diaper Incontinent Incontinent # Voids 1 - Labs CBC & Chem 7: 05/03/22 07:24 05/05/22 09:20
[2022-05-07] MEDS: FAMOTIDINE 20 MG/2 ML VIAL IV SCH ×2 (10:48→20:26)
[2022-05-07] MEDS: levETIRAcetam 500 MG TAB PO SCH ×2 (10:48→20:26)
[2022-05-07] MEDS: NICOTINE 14MG/24HR PATCH TRANSDERM SCH (10:48)
[2022-05-07] MEDS ORDERED: Potassium Replacement Protocol 1 EACH MISC MISCELLANE PRN (10:56)
--- NOTE | 2022-05-07 11:09 | P.PN ---
Subjective Progress Note Date: 05/07/22 Principal diagnosis: Concussion Patient much more alert at this time. He is oriented to person however not place or time. Able to hold on a conversation quite well. Apparently he did try to get out of bed earlier when the sitter was present. He is eating about 25-50% of his meals. Denies pain. Objective - Vital Signs Vital signs: Vital Signs Temp 98.5 F 05/07/22 08:00 Pulse 86 05/07/22 08:00 Resp 17 05/07/22 08:00 BP 145/90 05/07/22 08:00 Pulse Ox 99 05/07/22 08:00 FiO2 Intake & Output 05/06/22 05/07/22 05/07/22 18:59 06:59 18:59 Intake Total 960 Output Total 150 Balance 960 -150 Weight 56 kg Intake: Oral 960 Output: Urine 150 Other: Voiding Method Diaper Diaper Incontinent Incontinent # Voids 1 - Exam Abdomen: Soft, nontender, nondistended - Labs CBC & Chem 7: 05/03/22 07:24 05/05/22 09:20 Assessment and Plan (1) Cerebral hemorrhage Narrative/Plan: Patient slowly improving. Certainly neuro rehab would be beneficial to patient. Apparently plans for placement are underway. Once bed available and cleared by neurology plan discharge. Current Visit: Yes Status: Acute Code(s): I61.9 - NONTRAUMATIC INTRACEREBRAL HEMORRHAGE, UNSPECIFIED SNOMED Code(s): 288754409
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
[2022-05-07] MEDS: POTASSIUM CHLORIDE ER 20 MEQ TAB.ER PO SCH ×2 (17:42→17:49)
[2022-05-08] MEDS: THIAMINE 100 MG TAB PO SCH ×2 (06:52→17:05)
[2022-05-08] MEDS: NICOTINE 14MG/24HR PATCH TRANSDERM SCH (08:58)
[2022-05-08] MEDS: levETIRAcetam 500 MG TAB PO SCH ×2 (08:58→21:03)
[2022-05-08] MEDS: FAMOTIDINE 20 MG/2 ML VIAL IV SCH (09:06)
[2022-05-08] MEDS ORDERED: LORazepam 1 MG TAB PO PRN (09:35)
--- NOTE | 2022-05-08 09:54 | P.PN ---
Subjective Progress Note Date: 05/08/22 Principal diagnosis: Concussion Patient was transferred from stepdown unit to the fifth floor. Remains pleasantly confused. Cooperative. Denies pain. Neurology note from yesterday reviewed. Apparently they are signing off at this point. Objective - Vital Signs Vital signs: Vital Signs Temp 97.7 F 05/07/22 20:00 Pulse 93 05/08/22 02:00 Resp 19 05/08/22 02:00 BP 129/82 05/08/22 02:00 Pulse Ox 97 05/08/22 02:00 FiO2 Intake & Output 05/07/22 05/08/22 05/08/22 18:59 06:59 18:59 Intake Total 840 Output Total 150 Balance 690 Intake: Oral 840 Output: Urine 150 Other: Voiding Method Diaper Urinal Incontinent Diaper Incontinent # Voids 2 2 # Bowel Movements 1 - Exam Scalp hematomas mostly resolved Abdomen: Soft, nontender, nondistended - Labs CBC & Chem 7: 05/03/22 07:24 05/05/22 09:20 Assessment and Plan (1) Cerebral hemorrhage Narrative/Plan: Patient improving slowly. Will require inpatient neuro rehab. We'll discuss with discharge planning regarding transfer to inpatient rehab when bed available. Current Visit: Yes Status: Acute Code(s): I61.9 - NONTRAUMATIC INTRACEREBRAL HEMORRHAGE, UNSPECIFIED SNOMED Code(s): 470054370
--- NOTE | 2022-05-08 11:41 | P.PN ---
Subjective Progress Note Date: 05/08/22 Patient seen and examined around 9AM. Unchanged from yesterday. Sitter at bedside. General: non toxic, no distress, appears at stated age Derm: warm, dry Head: atraumatic, normocephalic, symmetric Eyes: EOMI, no lid lag, anicteric sclera Mouth: no lip lesion, mucus membranes moist Cardiovascular: no edema Lungs: No respiratory distress Ext: no gross muscle atrophy, no edema, no contractures Neuro: no focal neuro deficits Psych: Intelligible speach Assessment/plan: Altered mental status, suspected postconcussive syndrome versus alcohol withdrawal Closed head injury Intraparenchymal hemorrhage -Neurochecks -Fall precautions -Neurology consult -05/01 CT head shows no acute intracranial process, left posterior scalp hematoma with no evidence of fracture -05/05 CT head shows 4 mm intraparenchymal acute hemorrhage within the right frontal lobe -MRI brain shows contested hemorrhage with surrounding edema -EEG shows background slowing suggesting encephalopathy -Speech for swallow evaluation -One to one sitter -TSH, B12 and Folic acid levels within normal limits -[facility] protocol -Thiamine, IV fluids Hypertension -Hydralazine IV for SBP > 180 or DBP > 100 Hypokalemia -Replace and monitor PMR evaluated the patient and recommends inpatient rehab with closed unit. Social work on board for placement. We appreciate this opportunity to be involved in this patient's care. We will follow the patient with you. For any further questions, please not hesitate to contact the sound inpatient team. Objective - Vital Signs Vital signs: Vital Signs Temp 97.9 F 05/08/22 11:14 Pulse 65 05/08/22 11:14 Resp 18 05/08/22 11:14 BP 136/90 05/08/22 11:14 Pulse Ox 99 05/08/22 11:14 FiO2 Intake & Output 05/07/22 05/08/22 05/08/22 18:59 06:59 18:59 Intake Total 840 Output Total 150 Balance 690 Intake: Oral 840 Output: Urine 150 Other: Voiding Method Diaper Urinal Incontinent Diaper Incontinent # Voids 2 2 # Bowel Movements 1 - Labs CBC & Chem 7: 05/03/22 07:24 05/05/22 09:20
[2022-05-08] MEDS: FAMOTIDINE 20 MG TAB PO SCH (21:03)
[2022-05-09] MEDS: NICOTINE 14MG/24HR PATCH TRANSDERM SCH (09:01)
[2022-05-09] MEDS: THIAMINE 100 MG TAB PO SCH ×2 (09:01→17:13)
[2022-05-09] MEDS: levETIRAcetam 500 MG TAB PO SCH ×2 (09:01→22:31)
[2022-05-09] MEDS: FAMOTIDINE 20 MG TAB PO SCH ×2 (09:01→22:31)
--- NOTE | 2022-05-09 10:14 | P.PN ---
Subjective Progress Note Date: 05/09/22 Principal diagnosis: Concussion Patient remains alert. Today he is able to identify that he is in the hospital. Denies pain. Tolerating diet. Objective - Vital Signs Vital signs: Vital Signs Temp 97.9 F 05/09/22 04:15 Pulse 63 05/09/22 04:15 Resp 20 05/09/22 04:15 BP 102/74 05/09/22 04:15 Pulse Ox 100 05/09/22 04:15 FiO2 Intake & Output 05/08/22 05/09/22 05/09/22 18:59 06:59 18:59 Intake Total 240 480 Balance 240 480 Intake: Oral 240 480 Other: Voiding Method Urinal Urinal Diaper Diaper Incontinent Incontinent # Voids 2 # Bowel Movements 1 - Exam Abdomen: Soft, nontender, nondistended - Labs CBC & Chem 7: 05/03/22 07:24 05/05/22 09:20 Assessment and Plan (1) Cerebral hemorrhage Narrative/Plan: Patient improving clinically. Plan transfer to inpatient neuro rehab tomorrow. Current Visit: Yes Status: Acute Code(s): I61.9 - NONTRAUMATIC INTRACEREBRAL HEMORRHAGE, UNSPECIFIED SNOMED Code(s): 484439589
--- NOTE | 2022-05-09 10:16 | P.PN ---
Subjective Progress Note Date: 05/09/22 Patient seen and examined around 9AM. Able to have a conversation. Appears to be improving. Pleasant. Family at bedside. Sitter at bedside. General: non toxic, no distress, appears at stated age Derm: warm, dry Head: atraumatic, normocephalic, symmetric Eyes: EOMI, no lid lag, anicteric sclera Mouth: no lip lesion, mucus membranes moist Cardiovascular: no edema Lungs: No respiratory distress Ext: no gross muscle atrophy, no edema, no contractures Neuro: no focal neuro deficits Psych: Alert and oriented Assessment/plan: Altered mental status, suspected postconcussive syndrome versus alcohol with drawal Closed head injury Intraparenchymal hemorrhage -Neurochecks -Fall precautions -Neurology consult -05/01 CT head shows no acute intracranial process, left posterior scalp hematoma with no evidence of fracture -05/05 CT head shows 4 mm intraparenchymal acute hemorrhage within the right frontal lobe -MRI brain shows contested hemorrhage with surrounding edema -EEG shows background slowing suggesting encephalopathy -Speech for swallow evaluation and cognitive eval -One to one sitter -TSH, B12 and Folic acid levels within normal limits -[facility] protocol -Thiamine, IV fluids Hypertension -Hydralazine IV for SBP > 180 or DBP > 100 Hypokalemia -Replace and monitor PMR evaluated the patient and recommends inpatient rehab with closed unit. Social work on board for placement. We appreciate this opportunity to be involved in this patient's care. We will follow the patient with you. For any further questions, please not hesitate to contact the sound inpatient team. Objective - Vital Signs Vital signs: Vital Signs Temp 97.9 F 05/09/22 04:15 Pulse 63 05/09/22 04:15 Resp 20 05/09/22 04:15 BP 102/74 05/09/22 04:15 Pulse Ox 100 05/09/22 04:15 FiO2 Intake & Output 05/08/22 05/09/22 05/09/22 18:59 06:59 18:59 Intake Total 240 480 Balance 240 480 Intake: Oral 240 480 Other: Voiding Method Urinal Urinal Diaper Diaper Incontinent Incontinent # Voids 2 # Bowel Movements 1 - Labs CBC & Chem 7: 05/03/22 07:24 05/05/22 09:20
--- NOTE | 2022-05-10 07:02 | P.PN ---
Progress Note - Text Therapy notes reviewed and are from 05/06/22, will need to be updated. Patient has significant cognitive issues that will not be well addressed at [facility] and would still recommend IPR with closed head facility.
[2022-05-10] MEDS: THIAMINE 100 MG TAB PO SCH ×2 (08:14→22:25)
[2022-05-10] MEDS: FAMOTIDINE 20 MG TAB PO SCH ×2 (08:14→22:25)
[2022-05-10] MEDS: NICOTINE 14MG/24HR PATCH TRANSDERM SCH (08:14)
[2022-05-10] MEDS: levETIRAcetam 500 MG TAB PO SCH ×2 (08:14→22:25)
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
[2022-05-10] MEDS ORDERED: POTASSIUM CHLORIDE ER 20 MEQ TAB.ER PO STA (10:23)
[2022-05-10] MEDS ORDERED: THIAMINE 100 MG TAB ONE (16:30)
--- NOTE | 2022-05-10 21:22 | P.PN ---
Subjective Progress Note Date: 05/10/22 Principal diagnosis: Concussion Patient is stable today. Family is present at the bedside. Oriented to place and is recognizing his family members Objective - Vital Signs Vital signs: Vital Signs Temp 97.8 F 05/10/22 11:10 Pulse 60 05/10/22 11:10 Resp 16 05/10/22 11:10 BP 138/80 05/10/22 11:10 Pulse Ox 100 05/10/22 11:10 FiO2 Intake & Output 05/10/22 05/10/22 05/11/22 06:59 18:59 06:59 Intake Total 540 Balance 540 Intake: Oral 540 Other: Voiding Method Urinal Urinal Diaper Diaper Incontinent Incontinent - Exam Abdomen: Soft, nontender, nondistended - Labs CBC & Chem 7: 05/03/22 07:24 05/05/22 09:20 Assessment and Plan (1) Cerebral hemorrhage Narrative/Plan: patient continues to slowly improve. Anticipate transfer to inpatient neuro rehab unit when bed available. Current Visit: Yes Status: Acute Code(s): I61.9 - NONTRAUMATIC INTRACEREBRAL HEMORRHAGE, UNSPECIFIED SNOMED Code(s): 440936735
[2022-05-11 07:55] VITALS: BP 149/84; PULSE 66; RESP 15; TEMP 97.8
[2022-05-11] MEDS: levETIRAcetam 500 MG TAB PO SCH (07:59)
[2022-05-11] MEDS: THIAMINE 100 MG TAB PO SCH (07:59)
[2022-05-11] MEDS: NICOTINE 14MG/24HR PATCH TRANSDERM SCH (07:59)
[2022-05-11] MEDS: FAMOTIDINE 20 MG TAB PO SCH (07:59)
--- NOTE | 2022-05-11 09:33 | P.PN ---
Progress Note - Text Patient reviewed. Much improved cognitively and would accept for IPR locally. Discussed with patient, daughter, community case manager. Daughter plan is [place], currently.
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
== END 2022-05-11 15:54 | DRG 963 ==
LOC: EC 20:57 → 4SSUR 23:14 → 3SCARD 05-01 01:06 → 5NMEDONC 05-08 07:37
PROVIDERS: ADMIT Surgery; ATTEND Surgery
DX: S06.369A Traumatic hemorrhage of cerebrum, unspecified, with loss of consciousness of unspecified duration, initial encounter (principal); G92.8 Other toxic encephalopathy; S06.1X1A Traumatic cerebral edema with loss of consciousness of 30 minutes or less, initial encounter; S32.401A Unspecified fracture of right acetabulum, initial encounter for closed fracture; F10.239 Alcohol dependence with withdrawal, unspecified; I11.9 Hypertensive heart disease without heart failure; F10.229 Alcohol dependence with intoxication, unspecified; F07.81 Postconcussional syndrome; Y90.4 Blood alcohol level of 80-99 mg/100 ml; F17.210 Nicotine dependence, cigarettes, uncomplicated; E87.6 Hypokalemia; R26.9 Unspecified abnormalities of gait and mobility; R40.2142 Coma scale, eyes open, spontaneous, at arrival to emergency department; R40.2252 Coma scale, best verbal response, oriented, at arrival to emergency department; R40.2362 Coma scale, best motor response, obeys commands, at arrival to emergency department; I49.1 Atrial premature depolarization; R53.1 Weakness; R45.87 Impulsiveness; Y04.8XXA Assault by other bodily force, initial encounter; Y92.009 Unspecified place in unspecified non-institutional (private) residence as the place of occurrence of the external cause; Y07.6 Multiple perpetrators of maltreatment and neglect; Z88.0 Allergy status to penicillin; Z98.890 Other specified postprocedural states; Z82.49 Family history of ischemic heart disease and other diseases of the circulatory system
CPT/HCPCS: 36415; 70450; 70551; 71045; 72170; 72192; 80048; 80053; 80306; 80320; 82140; 82607; 82746; 83735; 84443; 85025; 85610; 85730; 86850; 86900; 86901; 90471; 90715; 93005; 94760; 95816; 96374; 96375; 99291

== ENCOUNTER 2023-06-28 07:56 | Day surgery (SDC) | payer OTHER ==
[~2023-06-28 07:56] MED LIST: LACTATED RINGERS 1,000 ML IV SCH
[2023-06-28 08:36] LABS: Glucose,Whole Blood 80 mg/dL (70-110)
[2023-06-28 08:42] VITALS: TEMP 97.6
--- NOTE | 2023-06-28 08:48 | P.GSHP ---
History of Present Illness H&P Date: 06/28/23 CHIEF COMPLAINT: GERD and colon screen HISTORY OF PRESENT ILLNESS: The patient is a 57-year-old male who presents with gastroesophageal reflux disease and need for colon screen. Upper and lower endoscopy were offered for further evaluation and management. PAST MEDICAL HISTORY: Please see list. PAST SURGICAL HISTORY: Please see list. MEDICATIONS: Please see list. ALLERGIES: Please see list. SOCIAL HISTORY: No illicit drug use FAMILY HISTORY: No reports of Crohn disease or ulcerative colitis. REVIEW OF ORGAN SYSTEMS: CONSTITUTIONAL: No reports of fevers or chills. GI: Denies any blood in stools or constipation. PHYSICAL EXAM: VITAL SIGNS: Stable GENERAL: Well-developed pleasant in no acute distress. HEENT: No scleral icterus. Extraocular movements grossly intact. Moist buccal mucosa. NECK: Supple without lymphadenopathy. CHEST: Unlabored respirations. Equal bilateral excursions. CARDIOVASCULAR: Regular rate and rhythm. Distal 2+ pulses. ABDOMEN: Soft, nondistended. MUSCULOSKELETAL: No clubbing, cyanosis, or edema. ASSESSMENT: 1. Gastroesophageal reflux disease 2. Colon screen. PLAN: 1. Recommend proceeding with an upper and lower endoscopy Past Medical History Past Medical History: Hyperlipidemia, Hypertension, Osteoarthritis (OA) Additional Past Medical History / Comment(s): sciatic pain- recent steroid use. blood in stool . pt has hemorrhoids. History of Any Multi-Drug Resistant Organisms: None Reported Past Surgical History: Hernia Repair Past Anesthesia/Blood Transfusion Reactions: No Reported Reaction Smoking Status: Former smoker - Past Family History Mother Family Medical History: Hypertension Father Additional Family Medical History / Comment(s): OPEN HEART Medications and Allergies Home Medications Medication Instructions Recorded Confirmed Type Atorvastatin [Lipitor] 10 mg PO HS 06/27/23 06/27/23 History amLODIPine [Norvasc] 5 mg PO DAILY 06/27/23 06/27/23 History predniSONE 50 mg PO DAILY 06/27/23 06/27/23 History Allergies Allergy/AdvReac Type Severity Reaction Status Date / Time Penicillins Allergy Unknown Verified 06/28/23 08:22 Surgical - Exam Vital Signs Temp Pulse Resp BP Pulse Ox 97.6 F 87 18 169/105 99 06/28/23 08:26 06/28/23 08:26 06/28/23 08:26 06/28/23 08:26 06/28/23 08:26
[2023-06-28] MEDS ORDERED: LIDOCAINE 1% INJ 10MG/ML (20 ML MDV) ONE (08:53)
[2023-06-28] MEDS ORDERED: PROPOFOL 10 MG/ML 20 ML VIAL IV ONE (08:53)
[2023-06-28 09:42] VITALS: RESP 16
--- NOTE | 2023-06-28 09:51 | P.PCN ---
Date of Procedure: 06/28/23 Description of Procedure: PREOPERATIVE DIAGNOSIS: Colonoscopy screening POSTOPERATIVE DIAGNOSIS: Tubular adenoma transverse colon Internal hemorrhoids, grade 4 OPERATION: Colonoscopy to the ileocecal valve and appendiceal orifice, cecum Colonoscopy with hot snare polypectomy SURGEON: Dinorah Patterson MD. ANESTHESIA: MAC. INDICATIONS: The patient is an 57-year-old male who presents for colonoscopy screening. Benefits and risks were described and informed consent was obtained. DESCRIPTION OF PROCEDURE: The patient had undergone PEG prep. The patient had been brought into the operating room and laid in the left lateral decubitus position. After adequate intravenous sedation, the rectum was examined with 2% lidocaine jelly. The prostate was unremarkable. External hemorrhoids were encountered. The rectal tone was within normal limits. No lesions were palpated in the rectal vault. An Olympus colonoscope was advanced until the cecum, ileocecal valve and appendiceal orifice were clearly viewed. The prep was excellent. No sigmoid diverticulosis was encountered. Colonic polyps were found and removed. No evidence of focal colitis was found. Retroflexion of the scope demonstrated grade 4 internal hemorrhoids without active bleeding or inflammation. The colon was desufflated. The patient had tolerated the procedure well. Withdrawal time was over 6 minutes. FINDINGS: Aronchick preparation quality scale 1 (1-5) Internal hemorrhoids, grade 4, reduced External hemorrhoids, grade 4. No arteriovenous malformations. No sigmoid diverticulosis Easily friable mucosa Removal of 1 polyp: - Snare polypectomy distal transverse colon, 10 mm tubular adenoma No focal colitis. RECOMMENDATIONS: Repeat colonoscopy 3 years2025 Plan - Discharge Summary Discharge Rx Participant: No New Discharge Prescriptions: Continue Atorvastatin [Lipitor] 10 mg PO HS predniSONE 50 mg PO DAILY amLODIPine [Norvasc] 5 mg PO DAILY Discharge Medication List Atorvastatin [Lipitor] 10 mg PO HS 06/27/23 [History] amLODIPine [Norvasc] 5 mg PO DAILY 06/27/23 [History] predniSONE 50 mg PO DAILY 06/27/23 [History] Follow up Appointment(s)/Referral(s): Dinorah Patterson MD [STAFF PHYSICIAN] - 07/18/23 10:30 am Patient Instructions/Handouts: *Surgery [facility] - (Anesthesia) Discharge Instructions Outpatient Surgery, Colorectal Polyps (GEN), Colonoscopy (DC) Activity/Diet/Wound Care/Special Instructions: Repeat colonoscopy 3 years, 2025 Discharge Disposition: HOME SELF-CARE
--- NOTE | 2023-06-28 09:59 | P.PCN ---
Date of Procedure: 06/28/23 Description of Procedure: PREOPERATIVE DIAGNOSIS: Gastrointestinal bleeding POSTOPERATIVE DIAGNOSIS: Gastroesophageal reflux disease. Gastritis. OPERATION: Esophagogastroduodenoscopy with biopsies along the esophagus, antrum and duodenum SURGEON: Dinorah Patterson MD ANESTHESIA: MAC. INDICATIONS: The patient is a 57-year-old male who presents with gastrointestinal bleeding. Benefits and risks of the procedure were described. Informed consent was obtained. DESCRIPTION: The patient was brought into the endoscopy suite and laid in the left lateral decubitus position. An Olympus gastroscope was passed along the posterior oropharynx down to the distal esophagus where the squamocolumnar junction was encountered at 40 cm from the incisors. The stomach was entered and bile reflux was found. Additional findings are listed below. Biopsies with cold forceps were obtained of the antrum. The first through third portion of the duodenum was examined. Retroflexion of the scope confirmed Hill grade 2 lower esophageal valve. The squamocolumnar junction demonstrated LA grade B erosive esophagitis. The stomach was desufflated. The patient tolerated the procedure well. FINDINGS: Squamocolumnar junction 40 cm from the incisors. Diaphragmatic hiatus at 40 cm. Hill grade 1 lower esophageal valve. LA grade A erosive esophagitis. Biopsies obtained of the duodenum and esophagus Chronic gastritis with biopsies obtained. RECOMMENDATIONS: Upper endoscopy as needed.
[2023-06-28 10:02] VITALS: BP 151/93; PULSE 82
== END 2023-06-28 10:34 | disposition home or self-care (01) ==
LOC: ORWHC2ENDO 07:56
PROVIDERS: ATTEND Surgery Plastic and Reconstructive Surgery
DX: Z12.11 Encounter for screening for malignant neoplasm of colon (principal); K29.51 Unspecified chronic gastritis with bleeding; B96.81 Helicobacter pylori [H. pylori] as the cause of diseases classified elsewhere; K64.3 Fourth degree hemorrhoids; K21.9 Gastro-esophageal reflux disease without esophagitis; D12.3 Benign neoplasm of transverse colon; E78.5 Hyperlipidemia, unspecified; I10 Essential (primary) hypertension; M19.90 Unspecified osteoarthritis, unspecified site; Z79.52 Long term (current) use of systemic steroids; Z87.891 Personal history of nicotine dependence; Z79.899 Other long term (current) drug therapy
CPT/HCPCS: 88305; 88342; 45385; 43239; J2001; J2704

== ENCOUNTER 2023-08-23 13:23 | Day surgery (SDC) | payer OTHER ==
--- NOTE | 2023-08-23 08:37 | P.GSHP ---
History of Present Illness H&P Date: 08/23/23 CHIEF COMPLAINT: GERD HISTORY OF PRESENT ILLNESS: The patient is a 57-year-old male who presents reports gastroesophageal reflux disease. Upper endoscopy was offered for further evaluation and management. PAST MEDICAL HISTORY: Please see list. PAST SURGICAL HISTORY: Please see list. MEDICATIONS: Please see list. ALLERGIES: Please see list. SOCIAL HISTORY: No illicit drug use FAMILY HISTORY: No reports of Crohn disease or ulcerative colitis. REVIEW OF ORGAN SYSTEMS: CONSTITUTIONAL: No reports of fevers or chills. GI: Denies any blood in stools or constipation. PHYSICAL EXAM: VITAL SIGNS: Stable GENERAL: Well-developed and pleasant in no acute distress. HEENT: No scleral icterus. Extraocular movements grossly intact. Moist buccal mucosa. NECK: Supple without lymphadenopathy. CHEST: Unlabored respirations. Equal bilateral excursions. CARDIOVASCULAR: Regular rate and rhythm. Distal 2+ pulses. ABDOMEN: Soft, nondistended. MUSCULOSKELETAL: No clubbing, cyanosis, or edema. ASSESSMENT: 1. Gastroesophageal reflux disease PLAN: 1. Recommend proceeding with an upper endoscopy Past Medical History Past Medical History: Hyperlipidemia, Hypertension, Osteoarthritis (OA) Additional Past Medical History / Comment(s): sciatic pain- recent steroid use. blood in stool . pt has hemorrhoids. History of Any Multi-Drug Resistant Organisms: None Reported Past Surgical History: Hernia Repair Past Anesthesia/Blood Transfusion Reactions: No Reported Reaction Past Psychological History: No Psychological Hx Reported Smoking Status: Former smoker Past Alcohol Use History: None Reported Additional Past Alcohol Use History / Comment(s): quit smoking and drinking around February 2023-1ppd. drank 1 pint liquor a day and has since quit around February 2023 Past Drug Use History: None Reported - Past Family History Mother Family Medical History: Hypertension Father Additional Family Medical History / Comment(s): OPEN HEART Medications and Allergies Home Medications Medication Instructions Recorded Confirmed Type Atorvastatin [Lipitor] 10 mg PO HS 06/27/23 08/22/23 History amLODIPine [Norvasc] 5 mg PO DAILY 06/27/23 08/22/23 History Omeprazole [PriLOSEC] 40 mg PO DAILY #14 cap 07/18/23 08/22/23 Rx Allergies Allergy/AdvReac Type Severity Reaction Status Date / Time Penicillins Allergy Unknown Verified 08/22/23 08:23
[2023-08-23 14:24] LABS: Glucose,Whole Blood 77 mg/dL (70-110)
[2023-08-23 14:34] VITALS: TEMP 97.8
[2023-08-23] MEDS ORDERED: PROPOFOL 10 MG/ML 20 ML VIAL IV ONE (15:04)
[2023-08-23] MEDS ORDERED: LIDOCAINE 1% INJ 10MG/ML (20 ML MDV) ONE (15:04)
--- NOTE | 2023-08-23 15:32 | P.PCN ---
Date of Procedure: 08/23/23 Description of Procedure: PREOPERATIVE DIAGNOSIS: H. pylori gastritis Gastroesophageal reflux disease POSTOPERATIVE DIAGNOSIS: Gastroesophageal reflux disease Gastritis. OPERATION: Esophagogastroduodenoscopy with biopsies along the antrum SURGEON: Dinorah Patterson MD ANESTHESIA: MAC. INDICATIONS: The patient is a 57-year-old female who presents with H. pylori gastritis and reflux disease. Benefits and risks of the procedure were described. Informed consent was obtained. DESCRIPTION: The patient was brought into the endoscopy suite and laid in the left lateral decubitus position. An Olympus gastroscope was passed along the posterior oropharynx down to the distal esophagus where the squamocolumnar junction was encountered at 40 cm from the incisors. The stomach was entered and no bile reflux was found. Additional findings are listed below. Biopsies with cold forceps were obtained of the antrum. The first through third portion of the duodenum was examined. Retroflexion of the scope confirmed Hill grade 2 lower esophageal valve. The squamocolumnar junction demonstrated LA grade B erosive esophagitis. The stomach was desufflated. The patient tolerated the procedure well. FINDINGS: Squamocolumnar junction 40 cm from the incisors. Diaphragmatic hiatus at 40 cm. Hill grade 2 lower esophageal valve. LA grade B erosive esophagitis. Chronic gastritis with biopsies obtained. RECOMMENDATIONS: Upper endoscopy as needed. Plan - Discharge Summary Discharge Rx Participant: No New Discharge Prescriptions: Continue Atorvastatin [Lipitor] 10 mg PO HS amLODIPine [Norvasc] 5 mg PO DAILY Omeprazole [PriLOSEC] 40 mg PO DAILY #14 cap Discharge Medication List Atorvastatin [Lipitor] 10 mg PO HS 06/27/23 [History] amLODIPine [Norvasc] 5 mg PO DAILY 06/27/23 [History] Omeprazole [PriLOSEC] 40 mg PO DAILY #14 cap 07/18/23 [Rx] Follow up Appointment(s)/Referral(s): Dinorah Patterson MD [STAFF PHYSICIAN] - 09/05/23 9:30 am Patient Instructions/Handouts: *Surgery [facility] - (Anesthesia) Discharge Instructions Outpatient Surgery, Gastritis (DC), Diet for Stomach Ulcers and Gastritis (ED), Upper Endoscopy (DC) Discharge Disposition: HOME SELF-CARE
[2023-08-23 16:10] VITALS: BP 115/78; PULSE 78; RESP 18
== END 2023-08-23 15:58 | disposition home or self-care (01) ==
LOC: ORWHC2ENDO 13:23
PROVIDERS: ATTEND Surgery Plastic and Reconstructive Surgery
DX: K29.50 Unspecified chronic gastritis without bleeding (principal); K21.00 Gastro-esophageal reflux disease with esophagitis, without bleeding; E78.5 Hyperlipidemia, unspecified; I10 Essential (primary) hypertension; M19.90 Unspecified osteoarthritis, unspecified site; Z88.0 Allergy status to penicillin; Z87.19 Personal history of other diseases of the digestive system; Z87.891 Personal history of nicotine dependence; Z79.899 Other long term (current) drug therapy
CPT/HCPCS: 88305; 88342; 43239; J2001; J2704